=== PATIENT | male | born 1990 | race Caucasian/White ===

== ENCOUNTER 2017-01-17 13:46 | Emergency (ER) | payer BC ==
[~2017-01-17] VITALS: Ht 188 cm; Wt 72.7 kg
[2017-01-17 13:48] VITALS: BP 124/74; TEMP 97.8
[2017-01-17] MEDS ORDERED: TYLENOL 325MG325 MG PO (14:05)
[2017-01-17] MEDS ORDERED: PEN-VEE K500 MG PO (14:54)
[2017-01-17] MEDS ORDERED: NORCO 325 MG-51 TAB PO (14:54)
[2017-01-17] MEDS ORDERED: ZOFRAN ODT4 MG PO (14:59)
[2017-01-17 15:11] VITALS: PULSE 52
== END 2017-01-17 15:12 | disposition home or self-care (01) ==
LOC: COL.ER 13:46
DX: S02.5XXA Fracture of tooth (traumatic), initial encounter for closed fracture (principal); R68.84 Jaw pain; F17.210 Nicotine dependence, cigarettes, uncomplicated; X58.XXXA Exposure to other specified factors, initial encounter

== ENCOUNTER 2017-02-20 11:04 | Emergency (ER) | payer BC ==
[~2017-02-20] VITALS: Ht 188 cm; Wt 72.7 kg
[~2017-02-20 11:04] MED LIST: NORCO 325 MG-51 TAB PO; PEN-VEE K500 MG PO; TYLENOL 325MG325 MG PO; ZOFRAN ODT4 MG PO
[2017-02-20 11:07] VITALS: BP 116/86; TEMP 98.7
[2017-02-20] MEDS ORDERED: TYLENOL W/COD1 UDTAB PO (11:35)
[2017-02-20] MEDS ORDERED: ZOFRAN ODT4 MG PO (11:36)
[2017-02-20] MEDS ORDERED: PERCOCET 325 MG1 TA2 PO (11:37)
[2017-02-20] MEDS ORDERED: IBU600 MG PO (11:37)
[2017-02-20 11:51] VITALS: PULSE 54
== END 2017-02-20 11:52 | disposition home or self-care (01) ==
LOC: COL.ER 11:04
DX: R68.84 Jaw pain (principal); Z98.818 Other dental procedure status

== ENCOUNTER → 2018-07-20 | Emergency (ER) | payer BC ==
[~2018-07-20] VITALS: Ht 182.9 cm; Wt 81.8 kg
[~2018-07-20] MED LIST changes: +IBU600 MG PO; +PERCOCET 325 MG1 TA2 PO; +TYLENOL W/COD1 UDTAB PO
[2018-07-20 22:00] VITALS: TEMP 98.1
[2018-07-21 01:10] VITALS: BP 124/94; PULSE 97
== END ==
LOC: COL.ER 22:00
DX: J20.9 Acute bronchitis, unspecified (principal); F17.210 Nicotine dependence, cigarettes, uncomplicated